=== PATIENT | female | born 1990 | race Caucasian/White ===

== ENCOUNTER → 2020-05-09 11:51 | Outpatient (BNVA) | payer MEDICAID, SELFPAY | PROVIDERS: PCP Family Medicine; Visit Provider Nurse Practitioner Family | DX: M25.511 Pain in right shoulder (principal) | CPT/HCPCS: 73030 ==

== ENCOUNTER → 2021-10-08 15:28 | Outpatient (BNVA) | payer OTHER, SELFPAY | PROVIDERS: Visit Provider Registered Nurse Neonatal Intensive Care | DX: M79.672 Pain in left foot (principal) | CPT/HCPCS: 73630 ==

== ENCOUNTER 2021-12-11 05:49 | Day surgery (SDC) | payer OTHER, SELFPAY ==
[2021-12-10 13:18] VITALS: BMI 44.2
[2021-12-11] VITALS (8 sets, daily range): BP systolic 105–147; BP diastolic 54–92; PULSE 63–81; RESP 16–18; TEMP 36.2–36.6; O2SAT 96–100
--- NOTE | 2021-12-11 | SCC_ITS ---
Procedure done: Left tailor's bunionectomy. CPT code 33868 6 seconds of fluoroscopic guidance, for a cumulative dose of 0.11mGy, was provided to Dr. Buckley by the radiology department. C-arm images of the LEFT foot were saved for the patient's permanent record. [facility]
[2021-12-11 06:15] LABS: OR HCG Qualitative Urine Negative (Negative)
[2021-12-11] MEDS: sodium chloride 0.9% 1,000 ML 30 ML IV (06:20)
[2021-12-11] MEDS: CELEcoxib 200 mg Capsule 400 MG PO (06:31)
[2021-12-11] MEDS: gabapentin 300 mg Capsule PO (06:31)
--- NOTE | 2021-12-11 06:36 | ANES.PREANE2 ---
Pre-Anesthetic Assessment Height/Weight: Height 1.68 m Weight 124.284 kg Temp Pulse Resp BP Pulse Ox 97.4 F L 81 16 147/92 98 12/11/21 06:07 12/11/21 06:07 12/11/21 06:07 12/11/21 06:07 12/11/21 06:07 Preop Diagnosis: Left zion's bunionette Operation Date: 12/11/21 07:00 Proposed Procedures p Left Bunionectomy Tailors [id number]/m21.622(Left) - Lizandro Buckley DPM Familial anesthetic complications: None Was Beta Bernie taken within 24 hours: N/A Was Clonidine taken within 24 hours: N/A Last intake: Intake Last Liquid Date 12/10/21 Last Liquid Time 19:00 Last Solid Date 12/10/21 Last Solid Time 19:00 Social No alcohol and No tobacco Exam alert, oriented x 3, clear to auscultation bilaterally and regular rate & rhythm Airway Mallampati: Class II Dentition: other (missing) History/ROS No significant complaints Metabolic Morbid Obesity Anesthetic Plan ASA status: 2 Anesthesia: MAC Risk of > 500 ml blood loss (7ml/kg in children): No Medications/Allergies Home Medications Medication Instructions Recorded Confirmed Last Taken Type No Known Home Medications 12/10/21 12/10/21 Unknown History Allergies Allergy/AdvReac Type Severity Reaction Status Date / Time No Known Allergies Allergy Verified 12/10/21 13:18 Current Medications Generic Name Dose Route Start Last Admin Trade Name Freq PRN Reason Stop Dose Admin Sodium Chloride 1,000 mls @ 30 mls/hr 12/11/21 06:00 12/11/21 06:20 Sodium Chloride 0.9% IV 12/12/21 05:59 30 mls/hr .Q24H EDUARD Administration PFSH Anesthesia Medical History Anemia Morbid obesity with BMI of 40.0-44.9, adult Right shoulder strain Surgical History Hx of cholecystectomy Social History Smoking and tobacco status: never smoked Alcohol intake: never Current occupational status: employed Female Reproductive History Date of last menstrual period: 12/04/19 Data Anesthesia Cardiac Studies: No Data to Display
--- NOTE | 2021-12-11 06:37 | W.PM.OPSUD ---
Surgery/Procedure H&P Update DATE OF PROCEDURE: December 11, 2021 DATE H&P PERFORMED: 12/11/21 CHANGES TO PREVIOUS DOCUMENTATION: none PREOP DIAGNOSIS: Left tailor's bunionette PLANNED PROCEDURE: Operation Date: 12/11/21 07:00 Proposed Procedures p Left Bunionectomy Ayesha 13036/m21.622(Left) - Lizandro Buckley DPM
--- NOTE | 2021-12-11 06:38 | PM.OPSURHP ---
Providers/Chief Complaint Chief Complaint: bunion left foot History of Present Illness Roxi Olivares is a 31 year old female presents with persistent pain at the right lateral foot at [facility]'s bunionectomy site.? States that her deformity has been progressive and pain is no longer alleviated with wide accommodative shoes or anti-inflammatories.? She has a sharp stabbing pain on a daily basis with standing and walking with and without shoes, shoes make it worse.? Would like to proceed with surgical intervention as conservative measures have failed alleviate her pain Patient denies any subjective nausea, vomiting, fever, chills, shortness of breath or chest pain.? Review of Systems General: Reports: 10 or more systems reviewed and unremarkable except in HPI and below Const: Denies: fever(s) or chills Eyes: Denies: change in vision Card: Denies: chest pain or palpitations Resp: Denies: dyspnea or productive cough GI: Denies: abdominal pain, nausea or vomiting : Denies: flank pain Musc: Reports: extremity pain, joint pain, joint stiffness, limited range of motion and deformity Skin/Breast: Reports: skin tenderness; Denies: rash Neuro: Reports: difficulty walking; Denies: numbness in extremities, sensory changes or frequent falls Psych: Denies: suicidal ideation Arden/Lymph: Denies: easy bruising Medications/Allergies Home Medications Medication Instructions Recorded Confirmed Last Taken Type No Known Home Medications 12/10/21 12/10/21 Unknown History Allergies Allergy/AdvReac Type Severity Reaction Status Date / Time No Known Allergies Allergy Verified 12/10/21 13:18 PFSH PFSH: Medical History Anemia Morbid obesity with BMI of 40.0-44.9, adult Right shoulder strain Surgical History Hx of cholecystectomy Social History Smoking and tobacco status: never smoked Alcohol intake: never Current occupational status: employed Female Reproductive History: Date of last menstrual period: 12/04/19 Vital Signs Vitals Signs: Last Vital Signs Temp 97.4 F L 12/11/21 06:07 Pulse 81 12/11/21 06:07 Resp 16 12/11/21 06:07 BP 147/92 12/11/21 06:07 Pulse Ox 98 12/11/21 06:07 Weight: Weight last 48 hrs Weight 274 lb Weight 274 lb Physical Exam Narrative: EXAM NARRATIVE: Patient is alert and oriented ?3 and in no acute distress.? The following is a focused bilateral lower extremity exam. VASCULAR: Dorsalis pedis and posterior tibial arteries palpable +2.? Capillary refill time less than 3 seconds to the distal hallux bilaterally. Calf is supple and nontender proximally and distally.? No pedal edema appreciated.? Pedal hair growth present. NEUROLOGICAL: Epicritic and protopathic sensations grossly intact to the lower extremities.? +2 Achilles tendon reflex noted bilaterally.? Negative Tinel sign upon percussion of lower extremity nerves. DERMATOLOGICAL: Lower extremity skin is well-hydrated, normal texture and turgor.? There are no open sores or lesions noted to the lower extremities.? No erythema or ecchymosis present to the bilateral legs and feet. MUSCULOSKELETAL: Exquisite tenderness to palpation at the left lateral fifth metatarsophalangeal joint at tailor's bunion deformity.? Tailor's bunion left foot that is tender to palpation.? Muscle strength 5 out of 5 in all 3 planes to the bilateral foot and ankle. CARDIOVASCULAR: S1, S2, normal rate, normal rhythm.? Dorsalis pedis and posterior tibial arteries palpable. LUNGS: Clear to auscltation, no use of acessory muscles, no crackles or wheezes. A&P Assessment and plan (1) Left foot pain: Status: Acute (2) Tailor's bunionette, left: Status: Acute Plan X-ray left foot 3 view shows curvature to the left fifth metatarsal distally.? Fifth metatarsal phalangeal joint is deviated and there is a osseous prominence clinically that is tender to palpation at the tailor's bunion site.? Patient no longer experiencing relief with wider and accommodative shoes and anti-inflammatories would like to discuss surgical intervention.? Recommended tailor's bunionectomy with risks including but not limited to pain, bleeding, numbness, infection, surgical site dehiscence, chronic swelling and numbness, failure to correct deformity, overcorrection of deformity, delayed union, malunion, nonunion, hardware irritation, failed hardware and need for further surgical intervention.? Patient is agreeable wishes to proceed with the scheduled on December 11, 2021 will be done outpatient. Left tailor's bunionectomy, 12/11/2021, outpatient, MAC anesthesia, gurney, supine, duration of procedure 30 minutes. Coding Level of Care Code Acute Lgsw for Amandag Fwd Diagnoses Left foot pain M79.672 Tailor's bunionette, left M21.622
--- NOTE | 2021-12-11 06:40 | PM.OP ---
Operative Report Date of procedure: December 11, 2021 Pre-op diagnosis: Left tailor's bunion. Post-op diagnosis: Same Post-op findings: None Procedure done: Left tailor's bunionectomy. CPT code 84313 Implants: [employer] ProStep, 4-0 Monocryl, 4-0 nylon. Specimens removed/disposition: None Pathology: None Surgeon: Lizandro Buckley D.P.M. Quality Engineer Medical Device: Alvin Estimated blood loss: Less than 5 24 IV fluids: 0 Urine output: None Complications: None Findings: Bunion left foot Brief History: shaneka Olivares is a 31 year old female presents with persistent pain at the right lateral foot at tailor's bunionectomy site.? States that her deformity has been progressive and pain is no longer alleviated with wide accommodative shoes or anti-inflammatories.? She has a sharp stabbing pain on a daily basis with standing and walking with and without shoes, shoes make it worse.? Would like to proceed with surgical intervention as conservative measures have failed alleviate her pain. Risks include pain, bleeding, numbness, infection, paresthesias, damage to adjacent soft tissue structures including nerve and tendon, hardware failure, hardware rotation, delayed union, malunion, nonunion, overcorrection of deformity, under correction deformity, need for further surgical intervention. N.p.o. since midnight. Informed consent signed by patient myself. I initialed her left lower extremity. Patient wishes to proceed. No guarantees written, expressed or implied. Procedure: Under mild sedation the patient was brought to the operating room and remained on the gurney in supine position. A timeout was performed. Anesthesia was then administered by the anesthesia service. Local anesthesia injected by myself total of 10 cc of 0.25% Marcaine plain in the left reverse Springer block. Well-padded pneumatic tourniquet applied to the left ankle. The left lower extremity was scrubbed, prepped and draped utilizing normal aseptic technique. Left foot was exanguinated with an Esmarch bandage and a tourniquet inflated to 250 mmHg. Attention was directed to the dorsal lateral aspect of the left fifth metatarsophalangeal joint where with a #15 blade a curvilinear incision was made directly lateral to the fifth metatarsal phalangeal joint through skin with dissection carried down through subcutaneous tissue utilizing a combination of blunt and sharp technique. Care was taken to retract and preserve neurovascular and tendinous structures. All bleeders were ligated and cauterized as necessary. The head of the fifth metatarsal was then directly visualized, metaphyseal diaphyseal juncture was transected utilizing a sagittal saw with a transverse osteotomy and the head of the fifth metatarsal shifted medially into a more anatomically corrected position. Next utilizing standard technique and manufacture surgical recommendations for this implant a small broach was inserted into the intramedullary canal of the fifth metatarsal and advanced, sizing required small implant for appropriate fit which was inserted and fixated utilizing a locking screw into the head of the fifth metatarsal. Positioning and anatomic reduction of the fourth intermetatarsal angle left foot appreciated on all 3 views of fluoroscopy intraoperatively. Smooth range of motion of the fifth metatarsal phalangeal joint appreciated. Hardware did not violate the joint. Incision was flushed with saline solution and closed with periosteum and subcutaneous tissue closed with 4-0 Vicryl and skin closed with 4-0 nylon. Incision was dressed with Adaptic, sterile 4 x 4, Kerlix and Ke wrap and a cam boot was applied to the left lower extremity. Tourniquet was deflated and a prompt hyperemic response is noted to the distal digits of the left foot. Patient tolerated procedure and anesthesia well and was transferred to the PACU with vital signs stable and vascular status intact. Following a period of postoperative monitoring she will be discharged home may be weightbearing as tolerated. Will follow-up in podiatry clinic next week. She is to keep her postoperative dressings clean, dry and intact until follow-up visit. Elevate left foot while resting. Activities below threshold of pain.
--- NOTE | 2021-12-11 07:45 | XR_ITS ---
WS: [id number] Left foot, 3 views, 12/11/2021 Clinical Data: Postop bunionectomy Comparison: Left foot, 10/08/2021 Findings: The patient has had an osteotomy of the distal left fifth metatarsal with a screw in the metatarsal h ead. There is a lateral plate adjacent to the distal left fifth metatarsal. The remainder of the foot is unremarkable. XR/XR foot LT min 3V* [id number] Impression: Osteotomy of left fifth metatarsal.
--- NOTE | 2021-12-11 11:00 | ANE.PACU2 ---
Inpatient post-anesthesia follow up: Airway intact: Yes Vital signs: Temperature 98 F Pulse Rate 64 Respiratory Rate 17 Blood Pressure 111/89 Pulse Oximetry 100 Oxygen Delivery Me thod Room Air Oxygen Flow Rate 6 Fraction of Inspir ed Oxygen Hydration adequate: Yes Nausea and vomiting: No Pain level: 1 Mental status: Baseline
== END 2021-12-11 08:58 | disposition home or self-care (01) ==
PROVIDERS: Visit Provider Podiatrist Foot & Ankle Surgery
PROC: 0QBP0ZZ Excision of Left Metatarsal, Open Approach (ICD-10-PCS; CPT 28110; principal; 2021-12-11 07:00)
DX: M21.622 Bunionette of left foot (principal); E66.01 Morbid (severe) obesity due to excess calories; Z68.41 Body mass index [BMI] 40.0-44.9, adult
CPT/HCPCS: 28308; 73630; 76000; 81025; 84703; C1713; C9290; J0690; J2250; J2704; J3010; J3490; J7030

== ENCOUNTER → 2021-12-24 14:06 | Outpatient (BNVA) | payer OTHER, SELFPAY | PROVIDERS: Visit Provider Podiatrist Foot & Ankle Surgery | DX: Z98.890 Other specified postprocedural states (principal) | CPT/HCPCS: 73630 ==

== ENCOUNTER 2022-01-08 00:24 | Emergency (ER) | payer OTHER, SELFPAY ==
[2022-01-08 00:36] VITALS: BP 149/98; PULSE 91; RESP 18; TEMP 36.5; O2SAT 98; BMI 37.4
--- NOTE | 2022-01-08 00:41 | W.ED.ALLEREA ---
HPI - Allergic Reaction General: Chief complaint: Allergic Reaction Stated complaint: tick bite on R ear, face swelling Time Seen by Provider: 01/08/22 00:41 History of Present Illness: HPI narrative: Patient comes in today with complaints of tick bite to the right ear. Patient noticed the tick on her ear earlier today. Patient was concerned due to some swelling of the face and ear at this evening. Patient denies any difficulties with breathing. Patient appears in no pain. Patient appears nontoxic. Review of Systems General: Reports: 10 or more systems reviewed and unremarkable except in HPI and below ENMT: Reports: ear discharge Card: Denies: chest pain Resp: Denies: dyspnea Skin/Breast: Reports: erythema PFSH ED PFSH: Medical History Anemia Morbid obesity with BMI of 40.0-44.9, adult Right shoulder strain Surgical History Hx of cholecystectomy Social History Smoking and tobacco status: never smoked Alcohol intake: never Current occupational status: employed Female Reproductive History: Date of last menstrual period: 12/04/19 Physical Exam Const: COMMON NORMALS: alert HENMT: COMMON NORMALS: TM's normal bilaterally FACE & SINUS: erythema (Preauricular mild) on the right EXTERNAL EAR: Yes external ear abnormal (Mild swelling and redness right side) TYMPANIC MEMBRANE: TM's normal bilaterally THROAT: posterior oropharynx normal Neck/C-Spine: COMMON NORMALS: full ROM Resp: COMMON NORMALS: normal respiratory effort Cardio: COMMON NORMALS: regular rate RATE: regular rate Extremity: COMMON NORMALS: normal to inspection Neuro: SENSORIUM/ORIENTATION: Yes alert Skin: GENERAL SKIN EXAM: erythema (Right preauricular area with mild swelling) Course Vital Signs: Vital signs: Vital Signs Temperature 97.7 F 01/08/22 00:36 Pulse Rate 91 01/08/22 00:36 Respiratory Rate 18 01/08/22 00:36 Blood Pressure 149/98 01/08/22 00:36 Pulse Oximetry 98 01/08/22 00:36 MDM - Allergic Reaction Medical Decision Making Patient comes in today for concerns of swelling and redness to her right side of her face and right auricular area. Patient reports picking a tick off her right ear earlier in the day. Patient was at work tonight and it was noticed that she had some redness and swelling. On exam respirations are even lungs are clear to auscultation. We do note some mild swelling to the right side of the face. There is also some swelling and redness to the right auricle of the ear. Tympanic membranes were intact. Differential diagnosis includes insect bite infection, local reaction to insect bite, contact dermatitis. We will go ahead and cover patient with some dexamethasone and a dose of doxycycline in the ER for the swelling and for possible infection. Patient will be continued on prednisone to help control swelling for the next 5 days. Patient will also be kept on doxycycline for the next 10 days for post tick bite exposure. Patient reports understanding of care plan and need for follow-up or return to the ER. Patient was also instructed on the use of antihistamines to help with itching and rash. Discharge Plan Discharge Patient Disposition: Home Clinical Impression: Tick bite Qualifiers: Encounter type: initial encounter Site of tick bite: head Site of tick bite of head: ear Laterality: right Qualified Code(s): S00.461A - Insect bite (nonvenomous) of right ear, initial encounter Condition: Stable Prescriptions: New prednisone 20 mg tablet 20 mg PO BID 5 Days Qty: 10 0RF doxycycline monohydrate 100 mg capsule 100 mg PO BID 10 Days Qty: 20 0RF No Action oxycodone-acetaminophen [Percocet] 5-325 mg tablet 1 tab PO Q6H PRN (Reason: pain) 7 Days Qty: 28 0RF Discharge Orders: Discharge ED (Routine); Ordered 01/08/22 Ordered By: Carlos Huitron Discharge Diet: Usual diet Discharge Activity: Increase activity as tolerated Patient Instructions: Tick Bite (ED) Activity Restrictions/Additional Instructions: Drink plenty of fluids. Take antibiotic and prednisone as directed. Take the antibiotic or steroid with food on your stomach to prevent nausea. Use acetaminophen or ibuprofen for pain and fever. Use Benadryl or [id number] Claritin or Zyrtec for itching. You can use Claritin or Zyrtec 1 to 2 tablets twice a day to help with itching and rash. Claritin or Zyrtec will not cause as much drowsiness and is much more well-tolerated than Benadryl. Follow-up with primary care. Return to ER as needed. Stand Alone Forms: Work/School Release Coding Level of Care Code ED Commercial Specialist for Sharad Barnes
[2022-01-08] MEDS: doxycycline 100 mg Tablet PO (00:55)
[2022-01-08] MEDS: dexamethasone 10 mg/mL INJ IM (00:56)
[2022-01-08 01:00] VITALS: BP 135/92; PULSE 84; RESP 16; O2SAT 98
[2022-01-08 01:06] VITALS: BP 135/92; PULSE 84; RESP 16; O2SAT 98
== END 2022-01-08 01:10 | disposition home or self-care (01) ==
PROVIDERS: Emergency Provider Nurse Practitioner Family
DX: S00.461A Insect bite (nonvenomous) of right ear, initial encounter (principal); W57.XXXA Bitten or stung by nonvenomous insect and other nonvenomous arthropods, initial encounter
CPT/HCPCS: 96372; 99283; J1100

== ENCOUNTER → 2022-01-14 07:56 | Outpatient (BNVA) | payer OTHER, SELFPAY | PROVIDERS: Visit Provider Podiatrist Foot & Ankle Surgery | DX: Z98.890 Other specified postprocedural states (principal) | CPT/HCPCS: 73630 ==

== ENCOUNTER → 2022-01-21 13:15 | Outpatient (BNVA) | payer OTHER, SELFPAY | PROVIDERS: Visit Provider Podiatrist Foot & Ankle Surgery | DX: Z98.890 Other specified postprocedural states (principal); M21.622 Bunionette of left foot | CPT/HCPCS: 73630 ==

== ENCOUNTER 2022-02-12 04:21 | Emergency (ER) | payer OTHER, SELFPAY ==
--- NOTE | 2022-02-12 04:37 | ED_ITS ---
Documented by User: Dandre Andino MD 02/23/22 22:48 HPI - General Adult General: Chief complaint: Medical Clearance Stated complaint: side injury Time Seen by Provider: 02/12/22 04:35 History of Present Illness: Ms. Olivares is a 32-year-old lady without signi ficant past medical history presents to the ER department due to concern over body fluid exposure. 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 Denies other recent changes in health. Onset (ago): minute(s) Location: abdomen Review of Systems General: Reports: 10 or more systems reviewed and unremarkable except in HPI and below PFSH ED PFSH: Medical History Anemia Morbid obesity with BMI of 40.0-44.9, adult Right shoulder strain Surgical History Hx of cholecystectomy Social History Smoking and tobacco status: never smoked Alcohol intake: never Current occupational status: employed Female Reproductive History: Date of last menstrual period: 12/04/19 Physical Exam Const: COMMON NORMALS: alert GENERAL APPEARANCE: cooperative and well devpercy young HENMT: COMMON NORMALS: normocephalic and atraumatic HEAD & SCALP: normocephalic and atraumatic THROAT: posterior oropharynx normal Eye: COMMON NORMALS: conjunctivae normal CONJUNCTIVA: Yes conjunctivae nor mal SCLERA: sclerae normal Neck/C-Spine: COMMON NORMALS: supple GENERAL: Yes trachea midline Resp: COMMON NORMALS: normal respiratory effort EFFORT & INSPECTION: Yes able to speak in complete sentences Cardio: COMMON NORMALS: regular rate and regular rhythm RATE: regular rate RHYTHM: regular rhythm GI: COMMON NORMALS: Soft to palpation PALPATION: Yes Soft to palpation and No Tenderness to palpation present (GI) Extremity: GENERAL: Yes normal exam except as noted and No edema Neuro: COMMON NORMALS: moves all extremities SENSORIUM/ORIENTATION: Yes alert and No Orientation impaired Psych: COMMON NORMALS: mental status grossly normal and Normal thought process present THOUGHT PROCESS: Normal thought process present Skin: NARRATIVE SKIN EXAM: Abrasion and contusion with fingernail swanson to right flank Course Vital Signs: Vital signs: Vital Signs Temperature 98 F 02/12/22 04:47 Pulse Rate 91 02/12/22 04:47 Respiratory Rate 15 02/12/22 04:47 Pulse Oximetry 96 02/12/22 04:47 Oxygen Delivery Me thod 02/12/22 04:47 MDM - General Adult Medical Decision Making 32-year-old lady presenting for possible body fluid exposure while at work. She was scratched on her right side with dirty fingers. No injuries requiring repair. Given that source of Exposure was known I discussed the case with warehouse specialist who will proceed with protocol regarding obtaining samples from patient. Patient comfortable waiting for those results and encouraged to follow-up. Chart signed out to me at change of shift however Dr. Nuñez completed care and I did not participate in patient's care at this visit. Medical Records I reviewed the patient's medical records. Lab Data I reviewed the patient's lab results. Laboratory Results Hep Bs Antigen Non-reactive (Nonreactive) 02/12/22 06:05 Hep Bs Antibody < 3.5 (11.5-1000) L 02/12/22 06:05 Hepatitis C Antibody Non-reactive (Nonreactive) 02/12/22 06:05 HIV 1&2 Ab & HIV 1 Ag Non-reactive (Non-Reactiv) 02/12/22 06:05 HIV 1&2 Antibody Non-reactive (Non-Reactiv) 02/12/22 06:05 Discharge Plan Discharge Patient Disposition: Home Clinical Impression: Employee exposure to body fluids, Abrasion Condition: Stable Prescriptions: No Action oxycodone-acetaminophen [Percocet] 5-325 mg tablet 1 tab PO Q6H PRN (Reason: pain) 7 Days Qty: 28 0RF hydrocodone-acetaminophen 5-325 mg tablet 1 tab PO Q6H PRN (Reason: pain) 7 Days Qty: 28 0RF triamcinolone acetonide 0.1 % cream 1 applic topical TID Qty: 30 2RF Discharge Orders: Discharge ED (Routine); Ordered 02/12/22 Ordered By: Dandre Andino Discharge Diet: Usual diet Discharge Activity: Resume usual activity Patient Instructions: Abrasion (ED) Activity Restrictions/Additional Instructions: Thank you for visiting the emergency department. You were seen and evaluated for concern over body fluid exposure. Please follow-up with employee health regarding testing of patient. I believe the likelihood of transmission of infectious disease is very low however if patient refuses to be tested you do have the option of having postexposure prophylaxis to prevent or reduce likelihood of prevention of HIV. This needs to be initiated within 72 hours of exposure so please follow-up within the next day or so regarding patient testing. Please perform local wound care keeping the area clean and dry. Watch for signs of infection. Return to the emergency department for anything that you are concerned about and feel needs emergency department evaluation. Coding Level of Care Code ED Account Planner for Chg Fwd Documented by User: Bobo Godoy DO 02/12/22 16:57 HPI - General Adult General: Chief complaint: Medical Clearance Stated complaint: side injury Time Seen by Provider: 02/12/22 04:35 History of Present Illness: See Dr. Nuñez's notes. I did not see this patient Dr. Andino completed care and discharge. [facility] ED PFSH: Medical History Anemia Morbid obesity with BMI of 40.0-44.9, adult Right shoulder strain Surgical History Hx of cholecystectomy Social History Smoking and tobacco status: never smoked Alcohol intake: never Current occupational status: employed Course Vital Signs: Vital signs: Vital Signs Temperature 98 F 02/12/22 04:47 Pulse Rate 91 02/12/22 04:47 Respiratory Rate 15 02/12/22 04:47 Pulse Oximetry 96 02/12/22 04:47 Oxygen Delivery Me thod 02/12/22 04:47 MDM - General Adult Medical Decision Making Chart signed out to me at change of shift however Dr. Nuñez completed care and I did not participate in patient's care at this visit. Lab Data Laboratory Results Hep Bs Antigen Non-reactive (Nonreactive) 02/12/22 06:05 Hep Bs Antibody < 3.5 (11.5-1000) L 02/12/22 06:05 Hepatitis C Antibody Non-reactive (Nonreactive) 02/12/22 06:05 HIV 1&2 Ab & HIV 1 Ag Non-reactive (Non-Reactiv) 02/12/22 06:05 HIV 1&2 Antibody Non-reactive (Non-Reactiv) 02/12/22 06:05 Discharge Plan Discharge Patient Disposition: Home Clinical Impression: Employee exposure to body fluids, Abrasion Condition: Stable Prescriptions: No Action oxycodone-acetaminophen [Percocet] 5-325 mg tablet 1 tab PO Q6H PRN (Reason: pain) 7 Days Qty: 28 0RF hydrocodone-acetaminophen 5-325 mg tablet 1 tab PO Q6H PRN (Reason: pain) 7 Days Qty: 28 0RF triamcinolone acetonide 0.1 % cream 1 applic topical TID Qty: 30 2RF Discharge Orders: Discharge ED (Routine); Ordered 02/12/22 Ordered By: Dandre Andino Discharge Diet: Usual diet Discharge Activity: Resume usual activity Patient Instructions: Abrasion (ED) Activity Restrictions/Additional Instructions: Thank you for visiting the emergency department. You were seen and evaluated for concern over body fluid exposure. Please follow-up with employee health regarding testing of patient. I believe the likelihood of transmission of infectious disease is very low however if patient refuses to be tested you do have the option of having postexposure prophylaxis to prevent or reduce likelihood of prevention of HIV. This needs to be initiated within 72 hours of exposure so please follow-up within the next day or so regarding patient testing. Please perform local wound care keeping the area clean and dry. Watch for signs of infection. Return to the emergency department for anything that you are concerned about and feel needs emergency department evaluation. Coding Level of Care Code ED Account Planner for Sharad Barnes
[2022-02-12 04:47] VITALS: PULSE 91; RESP 15; TEMP 36.6; O2SAT 96; BMI 43.4
[2022-02-12 07:17] LABS: HIV 1 & 2 Antibody Non-Reactive (Non-Reactiv); HIV 1 & 2 Antigen Non-Reactive (Non-Reactiv)
[2022-02-12 10:13] LABS: Hepatitis B Surface Antigen Non-Reactive (Nonreactive); Hepatitis C Virus Antibody Non-Reactive (Nonreactive)
[2022-02-12 10:27] LABS: Hepatitis B Surface AB < 3.5 (11.5-1000)
== END 2022-02-12 06:47 | disposition home or self-care (01) ==
PROVIDERS: Emergency Provider Emergency Medicine
DX: Z77.21 Contact with and (suspected) exposure to potentially hazardous body fluids (principal); Y99.0 Civilian activity done for income or pay; T14.8XXA Other injury of unspecified body region, initial encounter; X58.XXXA Exposure to other specified factors, initial encounter
CPT/HCPCS: 86706; 86803; 87340; 87806; 99283

== ENCOUNTER → 2022-03-04 14:02 | Outpatient (BNVA) | payer OTHER, SELFPAY | PROVIDERS: Visit Provider Podiatrist Foot & Ankle Surgery | DX: M79.672 Pain in left foot (principal) | CPT/HCPCS: 73630 ==

== ENCOUNTER 2022-04-02 10:52 | Emergency (ER) | payer OTHER, SELFPAY ==
[2022-04-02 10:55] VITALS: BP 124/85; PULSE 100; RESP 16; TEMP 36.7; O2SAT 96; BMI 39.0
--- NOTE | 2022-04-02 11:05 | ED_ITS ---
HPI - Allergic Reaction General: Chief complaint: Allergic Reaction Stated complaint: body rash, possible allergic reaction Time Seen by Provider: 04/02/22 11:04 History of Present Illness: HPI narrative: Ms. Olivares is a 32-year-old lady without significant past medical history presents to the emergency department due to concern over allergic reaction. She reports being at work yesterday and noticing a little bit of nonpainful swelling without known specific provoking factor of the left eye. This became more swollen before bed and she noticed a mild rash on her chest. She woke up this morning with more swelling, facial rash, generalized itchy rash around her body. Denies new environmental exposure. No GI symptoms or shortness of breath/throat swelling. No history of similar. Intensity symptoms is moderate. She tried home medications including Benadryl without significant improvement. No other specific changes in health, exacerbating, or alleviating factors identified. Onset (ago): hour(s) Known history of allergy to: None Associated symptoms: Reports facial swelling, itching and rash Severity: moderate Review of Systems General: Reports: 10 or more systems reviewed and unremarkable except in HPI and below All/Imm: Reports: facial swelling [facility] ED PFSH: Medical History Anemia Morbid obesity with BMI of 40.0-44.9, adult Right shoulder strain Surgical History Hx of cholecystectomy Social History Smoking and tobacco status: never smoked Alcohol intake: never Current occupational status: employed Female Reproductive History: Date of last menstrual period: 12/04/19 Physical Exam Const: COMMON NORMALS: alert GENERAL APPEARANCE: cooperative and well developed HENMT: COMMON NORMALS: normocephalic and atraumatic HEAD & SCALP: normocephalic and atraumatic THROAT: posterior oropharynx normal OTHER: Left periorbital edema without ecchymosis, mild to moderate, soft Eye: COMMON NORMALS: conjunctivae normal CONJUNCTIVA: Yes conjunctivae normal SCLERA: sclerae normal OTHER: No evidence of ocular involvement with allergic reaction, normal EOMs without pain Neck/C-Spine: COMMON NORMALS: supple GENERAL: Yes trachea midline Resp: COMMON NORMALS: normal respiratory effort and clear to auscultation bilaterally EFFORT & INSPECTION: Yes able to speak in complete sentences AUSCULTATION: clear to auscultation bilaterally Cardio: COMMON NORMALS: regular rate and regular rhythm RATE: regular rate RHYTHM: regular rhythm GI: COMMON NORMALS: Soft to palpation PALPATION: Yes Soft to palpation and No Tenderness to palpation present (GI) Extremity: GENERAL: Yes normal exam except as noted and No edema Neuro: COMMON NORMALS: moves all extremities SENSORIUM/ORIENTATION: Yes alert and No Orientation impaired Psych: COMMON NORMALS: mental status grossly normal and Normal thought process present THOUGHT PROCESS: Normal thought process present Skin: NARRATIVE SKIN EXAM: Scattered areas of erythema and wheals, more confluent lesion in the right antecubital area. Course ED course: - Patient was seen and evaluated by me at bedside - Patient placed on cardiac monitors, IV access obtained - Initial evaluation notable for exam above. No evidence of orbital cellulitis or abnormal EOMs. -Allergic reaction treatment and IV fluids ordered - Upon serial reexamination after treatment the patient was improved - Based on patient history, evaluation, and testing as interpreted the most likely cause of the patient's condition is allergic reaction to unknown agent - The results of ED evaluation were discussed with the patient including prescriptions and/or symptomatic cares (if applicable) including appropriate and responsible use, followup plan, and return precautions. The patient verbalized understanding and felt safe for discharge. - Patient discharged in satisfactory condition. Note: Click bubbles or prepopulated vergara in note writing are used for assistance with data collection and billing and are inherently more limited than narrative and other text portions of this note. Please use narrative for additional clinical history and defer to narrative/free test for any case of contradictory information. If information appears in only free text or click bubble it should be considered present or absent as reported. Please contact note magnetic tape typewriter operator for clarifications of clinical information or contradictory information. MDM is a brief summary, contradictory or erroneous seeming information should be clarified and full note should be reviewed. Vital Signs: Vital signs: Vital Signs Temperature 98.0 F 04/02/22 10:55 Pulse Rate 100 04/02/22 10:55 Respiratory Rate 16 04/02/22 10:55 Blood Pressure 124/85 04/02/22 10:55 Pulse Oximetry 96 04/02/22 10:55 Oxygen Delivery Ia thod 04/02/22 10:55 MDM - Allergic Reaction Medical Decision Making 32-year-old lady presenting with likely allergic reaction to unknown agent. No evidence of anaphylaxis. Improved with treatment. Satisfactory for outpatient management with continued treatment. Medical Records I reviewed the patient's medical records. Lab Data I reviewed the patient's lab results. Discharge Plan Discharge Patient Disposition: Home Clinical Impression: Allergic reaction, Urticaria Condition: Stable Prescriptions: No Action Benadryl 1 % Cream 1 applic TOPICAL Q1H PRN (Reason: Allergic Reaction) Benadryl 25 mg Capsule 25 mg PO Q6H PRN (Reason: Allergic Reaction) Discharge Orders: Discharge ED (Routine); Ordered 04/02/22 Ordered By: Dandre Andino Discharge Diet: Usual diet Discharge Activity: Increase activity as tolerated Patient Instructions: Urticaria (ED), General Allergic Reaction (ED) Activity Restrictions/Additional Instructions: Thank you for visiting the emergency department. You were seen and evaluated for itchy rash and facial swelling. The exact cause of your symptoms is unclear though does appear to be related to allergic reaction of uncertain cause. I will prescribe steroids and Pepcid for a 5-day course. Additionally you may use Benadryl as directed on the packaging. Please follow-up with your primary care provider. Return to the emergency department for worsening symptoms or anything else that you are concerned about and feel needs emergency department evaluation. Stand Alone Forms: Work/School Release Coding Level of Care Code ED Application Security Developer for Sharad Fwd Exam Comprehensive
[2022-04-02] MEDS: famotidine 20 mg/2 mL INJ 40 MG IVP (12:06)
[2022-04-02] MEDS: lactated ringers 1,000 ML 999 ML IV (12:06)
[2022-04-02] MEDS: diphenhydrAMINE 50 mg/mL SDV 1mL 25 MG IVP (12:06)
== END 2022-04-02 13:11 | disposition home or self-care (01) ==
PROVIDERS: Emergency Provider Emergency Medicine
DX: T78.40XA Allergy, unspecified, initial encounter (principal); L50.9 Urticaria, unspecified
CPT/HCPCS: 96361; 96374; 96375; 99284; J1200; J2930; J3490

== ENCOUNTER → 2022-05-14 14:57 | Outpatient (BNVA) | payer OTHER, SELFPAY | PROVIDERS: Visit Provider Podiatrist Foot & Ankle Surgery | DX: M21.621 Bunionette of right foot (principal); L60.0 Ingrowing nail | CPT/HCPCS: 73630 ==

== ENCOUNTER → 2022-05-19 15:59 | Outpatient (BNVA) | payer OTHER, SELFPAY | PROVIDERS: Visit Provider Podiatrist Foot & Ankle Surgery | DX: Z98.890 Other specified postprocedural states (principal); S90.32XA Contusion of left foot, initial encounter; W23.0XXA Caught, crushed, jammed, or pinched between moving objects, initial encounter | CPT/HCPCS: 73630 ==

== ENCOUNTER → 2022-06-09 14:13 | Outpatient (BNVA) | payer OTHER, SELFPAY | PROVIDERS: Visit Provider Registered Nurse Neonatal Intensive Care | DX: J02.9 Acute pharyngitis, unspecified (principal) | CPT/HCPCS: 87071; 87880 ==

== ENCOUNTER 2022-06-11 11:08 | Outpatient (CLI) | payer OTHER, SELFPAY ==
--- NOTE | 2022-06-11 11:19 | XR_ITS ---
WS: [id number] Exam: XR chest 2V* [id number] Date/Time of Exam: 06/11/2022 11:19 AM Reason For Exam: COUGH Comparison 05/03/2013. Findings: The lungs are clear and fully expanded. Costophrenic angles are sharp. No infiltrates. Bronchovascula r relief appears normal. Cardiac silhouette is unremarkable. Bony elements are intact. XR/XR chest 2V* [id number] IMPRESSION: Unremarkable chest radiograph.
== END 2022-06-11 11:09 | disposition home or self-care (01) ==
PROVIDERS: Visit Provider Family Medicine
DX: R05.9 Cough, unspecified (principal)
CPT/HCPCS: 71046

== ENCOUNTER 2022-06-23 08:59 | Emergency (ER) | payer OTHER, SELFPAY ==
[2022-06-23 09:03] VITALS: BP 135/86; PULSE 82; RESP 13; TEMP 36.5; O2SAT 96; BMI 37.8
--- NOTE | 2022-06-23 09:12 | W.ED.COVID ---
HPI - COVID General: Chief Complaint: COVID symptoms Stated Complaint: exposed to bodily fluids Time Seen by Provider: 06/23/22 09:05 History of Present Illness: Patient is a 32-year-old female comes to the ED after COVID exposure. Patient's been around a person who was recently diagnosed with COVID. Over the last day she endorses some nausea and had an episode of emesis today. She denies any other symptoms. COVID 19 common symptoms: positive nausea and vomiting; negative fever(s), chills, non-productive cough, productive cough, dyspnea, fatigue, headache(s), throat pain, nasal congestion or diarrhea COVID 19 other sytmptoms: negative chest pain COVID Results: SARS-CoV-2 Antigen (Rapid) negative (Negative) 06/23/22 08:56 Review of Systems Const: Denies: fever(s), chills or fatigue Eyes: Denies: change in vision or eye discomfort ENMT: Denies: throat pain, odynophagia, nasal discharge or nasal congestion Card: Denies: chest pain, palpitations, edema, swelling of feet/ankles, dyspnea on exertion or orthopnea Resp: Denies: dyspnea, productive cough or non-productive cough GI: Reports: nausea and vomiting; Denies: abdominal pain, diarrhea, constipation or hematochezia : Denies: flank pain, dysuria or hematuria Musc: Denies: neck pain, back pain or extremity swelling Skin/Breast: Denies: rash or new lesions Neuro: Denies: headache(s), numbness in extremities or weakness in extremities [facility] ED PFSH: Medical History Anemia Morbid obesity with BMI of 40.0-44.9, adult Right shoulder strain Surgical History Hx of cholecystectomy Social History Smoking and tobacco status: never smoked Alcohol intake: never Current occupational status: employed Female Reproductive History: Date of last menstrual period: 12/04/19 Physical Exam Const: COMMON NORMALS: no acute distress, patient oriented x3, healthy appearing and alert GENERAL APPEARANCE: cooperative and comfortable HENMT: COMMON NORMALS: normocephalic HEAD & SCALP: normocephalic MOUTH: Normal oral and palatal mucosa present THROAT: posterior oropharynx normal and uvula midline Neck/C-Spine: COMMON NORMALS: supple GENERAL: Yes normal visual inspection Resp: COMMON NORMALS: normal respiratory effort, No retractions, No use of accessory muscles and clear to auscultation bilaterally AUSCULTATION: clear to auscultation bilaterally Cardio: COMMON NORMALS: regular rate, regular rhythm, S1 normal heart sound present, S2 normal heart sound present, No gallops present (Cardio), No clicks present (Cardio), No murmurs present (Cardio) and Peripheral pulses 2+ throughout RATE: regular rate RHYTHM: regular rhythm HEART SOUNDS: S1 normal heart sound present and S2 normal heart sound present PERIPHERAL PULSES: Peripheral pulses 2+ throughout GI: COMMON NORMALS: Normal to inspection, nondistended, normoactive bowel sounds present, Soft to palpation, non-tender and no masses PALPATION: Yes Soft to palpation : COMMON NORMALS: Yes no CVA tenderness BLADDER/KIDNEY EXAM: Yes no CVA tenderness Back/Pelvis: COMMON NORMALS: no CVA tenderness Neuro: COMMON NORMALS: patient oriented x3 SENSORIUM/ORIENTATION: Yes alert GAIT: Yes Normal gait present Course Vital Signs: Vital signs: Vital Signs Temperature 97.7 F 06/23/22 09:03 Pulse Rate 82 06/23/22 09:03 Respiratory Rate 13 06/23/22 09:03 Blood Pressure 135/86 06/23/22 09:03 Pulse Oximetry 97 06/23/22 09:31 Oxygen Delivery Me thod 06/23/22 09:31 MDM - COVID Medical Decision Making Patient is a 32-year-old female comes to the ED after COVID exposure. Patient's been around a person who was recently diagnosed with COVID. Over the last day she endorses some nausea and had an episode of emesis today. She denies any other symptoms. Vitals are stable. Patient peers nontoxic in no acute distress or pain. Rest of exam is benign. Patient was given dose of IM Zofran to help with nausea. Rapid COVID test was negative. Patient was diagnosed with encounter for laboratory testing for COVID-19 and was stable for discharge home. Return to ED precautions given. Follow-up with PCP in the next week for reevaluation. Patient was discharged home with a prescription for some Zofran to help with any nausea. Patient understood and agreed with plan. Lab Data I reviewed the patient's lab results. Laboratory Results SARS-CoV-2 Ag (Rapid) negative (Negative) 06/23/22 08:56 SARS-CoV-2 Antigen (Rapid) negative (Negative) 06/23/22 08:56 Discharge Plan Discharge Patient Disposition: Home Clinical Impression: Encounter for laboratory testing for COVID-19 virus Condition: Stable Prescriptions: New ondansetron 4 mg tablet,disintegrating 4 mg PO Q8H PRN (Reason: nausea and vomiting) Qty: 12 0RF No Action amoxicillin 500 mg capsule 500 mg PO BID 10 Days Qty: 20 0RF Discharge Orders: Discharge ED (Routine); Ordered 06/23/22 Ordered By: Shailesh Vergara Discharge Diet: Regular Discharge Activity: Increase activity as tolerated Activity Restrictions/Additional Instructions: Follow-up with medical provider as directed in the next 5 to 7 days for reevaluation. Take medications as prescribed. Return to the ER or your medical provider if condition worsens. Please read and understand discharge instructions. Thank you for choosing [facility] for your healthcare needs today. Please realize this is an emergency room and that we are providing you with a medical screening exam and this may not be complete and all inclusive of all the testing and or work up that you may need to determine your ailment or severity of your illness. It is very important that you follow up as instructed or that you return to the Emergency Department should you have concerns or if your condition changes or worsens in any way. Coding Level of Care Code ED Manager Domestic for Sharad Barnes Exam Comprehensive
[2022-06-23 09:31] VITALS: O2SAT 97
[2022-06-23] MEDS: ondansetron 2 mg/ML SDV 2 mL 4 MG IM (09:32)
[2022-06-23 09:52] LABS: SARS Covid-2 Antigen negative (Negative)
== END 2022-06-23 09:30 | disposition home or self-care (01) ==
PROVIDERS: Emergency Provider Physician Assistant
DX: Z20.822 Contact with and (suspected) exposure to COVID-19 (principal)
CPT/HCPCS: 87426; 96372; 99284; J2405

== ENCOUNTER 2022-06-24 05:38 | Emergency (ER) | payer OTHER, SELFPAY ==
[2022-06-24 05:55] VITALS: BP 127/83; PULSE 94; RESP 18; TEMP 36.4; O2SAT 98
--- NOTE | 2022-06-24 06:10 | ED_ITS ---
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 Needle was a 23-gauge needle it had been used. Incidentally patient recently seen for sore throat and had a positive strep culture is currently off oral antibiotics for strep. MD complaint: Needlestick Onset (ago): minute(s) Relieving factors: none Exacerbating factors: none Associated symptoms: Reports no associated symptoms; Deny chest pain, dyspnea, malaise, nausea, rash or vomiting Treatments prior to arrival: none Review of Systems Const: Denies: fever(s), chills, body aches, change in appetite, fatigue or malaise ENMT: Reports: throat pain Card: Denies: chest pain, edema, dyspnea on exertion or orthopnea Resp: Denies: dyspnea, productive cough or non-productive cough GI: Denies: abdominal pain, nausea, vomiting, hematemesis, coffee ground emesis, diarrhea, constipation, bloating, hematochezia or melena : Denies: flank pain, difficulty voiding, dysuria, urinary frequency or urinary urgency Skin/Breast: Denies: rash or pruritus PFS ED PFSH: Medical History Anemia Morbid obesity with BMI of 40.0-44.9, adult Right shoulder strain Surgical History Hx of cholecystectomy Social History Smoking and tobacco status: never smoked Alcohol intake: never Current occupational status: employed Female Reproductive History: Date of last menstrual period: 12/04/19 Physical Exam Const: COMMON NORMALS: no acute distress GENERAL APPEARANCE: cooperative and comfortable ORIENTATION/CONSCIOUSNESS: Yes awake, Yes oriented to person, Yes oriented to place and Yes oriented to time HENMT: COMMON NORMALS: normocephalic and atraumatic HEAD & SCALP: normocephalic and atraumatic Resp: COMMON NORMALS: normal respiratory effort, No retractions, No use of accessory muscles and clear to auscultation bilaterally AUSCULTATION: clear to auscultation bilaterally Cardio: COMMON NORMALS: regular rate, regular rhythm and No murmurs present (Cardio) RATE: regular rate RHYTHM: regular rhythm Extremity: OTHER: Superficial abrasion to the posterior medial aspect of the right upper arm. It is about the 3 to 4 inches in length. Some dried blood present. There is an even more superficial abrasion further out or there is no bleeding. Neuro: SENSORIUM/ORIENTATION: Yes oriented to person, Yes oriented to place and Yes oriented to time Skin: COMMON NORMALS: no rashes or lesions noted GENERAL SKIN EXAM: no rashes or lesions noted Course Vital Signs: Vital signs: Vital Signs Temperature 97.6 F 06/24/22 05:55 Pulse Rate 94 06/24/22 05:55 Respiratory Rate 18 06/24/22 05:55 Blood Pressure 127/83 06/24/22 05:55 Pulse Oximetry 98 06/24/22 05:55 Oxygen Delivery Me thod 06/24/22 05:55 MDM - General Adult Medical Decision Making Relatively low incidence for transmission. Small gauge needle and was not technically a needlestick to more of an abrasion. Patient declines a anti-HIV prophylaxis. Routine labs have been done and are pending. Nursing pleating supervisor is having the source patient tested. Medical Records I reviewed the patient's medical records. Lab Data I reviewed the patient's lab results. Discharge Plan Discharge Patient Disposition: Home Clinical Impression: Exposure to blood, Needlestick injury of upper arm Condition: Stable Prescriptions: No Action amoxicillin 500 mg capsule 500 mg PO BID 10 Days Qty: 20 0RF ondansetron 4 mg tablet,disintegrating 4 mg PO Q8H PRN (Reason: nausea and vomiting) Qty: 12 0RF Discharge Orders: Discharge ED (Routine); Ordered 06/24/22 Ordered By: Bobo Godoy Discharge Diet: Usual diet Discharge Activity: Resume usual activity Patient Instructions: Opioid Safety, Pain Management Activity Restrictions/Additional Instructions: Follow-up with employee health for completion of testing. He may return to work without restrictions. Coding Level of Care Code ED Radial Router Operator for Sharad Barnes
[2022-06-24 06:34] LABS: Alanine Aminotransferase 75 U/L (0-33); Albumin Level 3.8 g/dL (3.5-5.2); Alkaline Phosphatase 121 U/L (35-105); Anion Gap 12.6 (5-19); Aspartate Amino Transferase 54 U/L (0-32); Blood Urea Nitrogen 10 mg/dL (6-20); Carbon Dioxide 24 mmol/L (22-29); Chloride 103 mmol/L (98-107); Globulin 3.9 g/dL (1.3-4.6); Glomerular Filtration Rate 114.4 mL/min (90-130); Glucose 87 mg/dL (65-115); Osmolality Calculated 280 mOsm/kg (285-295); Potassium 3.6 mmol/L (3.5-5.1); Sodium 136 mmol/L (136-145); Total Bilirubin 0.8 mg/dL (0.15-1.2); Total Protein 7.7 g/dL (6.6-8.7)
[2022-06-24 07:28] LABS: Hepatitis A Antibody IgM Non-Reactive (Nonreactive); Hepatitis B Core IgM Non-Reactive (Nonreactive); Hepatitis B Surface Antigen Non-Reactive (Nonreactive); Hepatitis C Virus Antibody Non-Reactive (Nonreactive)
[2022-06-24 07:32] LABS: HIV 1 & 2 Antibody Non-Reactive (Non-Reactiv); HIV 1 & 2 Antigen Non-Reactive (Non-Reactiv)
== END 2022-06-24 06:25 | disposition home or self-care (01) ==
PROVIDERS: Emergency Provider Family Medicine
DX: S41.131A Puncture wound without foreign body of right upper arm, initial encounter (principal); W46.1XXA Contact with contaminated hypodermic needle, initial encounter
CPT/HCPCS: 36415; 80053; 80074; 87806; 99283

== ENCOUNTER 2022-08-31 09:04 | Outpatient (CLI) | payer OTHER, SELFPAY ==
[2022-08-31 09:27] LABS: Chol HDL Ratio 2.38 mg/dL (0.0-4.40); Cholesterol 138 mg/dL (0-200); Glucose 83 mg/dL (65-115); HDL Cholesterol 58 mg/dL (60-100); LDL Cholesterol Calculated 72 mg/dL (50-129); LDL HDL Ratio 1.24 RATIO (0.00-3.22); Triglycerides 39 mg/dL (0-150)
[2022-08-31 10:28] LABS: Estmated Average Glucose 97
== END 2022-08-31 09:05 | disposition home or self-care (01) ==
PROVIDERS: Visit Provider Family Medicine
DX: Z01.89 Encounter for other specified special examinations (principal)
CPT/HCPCS: 80061; 82947; 83036

== ENCOUNTER → 2022-10-18 07:58 | Outpatient (BNVA) | payer OTHER, SELFPAY | PROVIDERS: Visit Provider Podiatrist Foot & Ankle Surgery | DX: L60.3 Nail dystrophy (principal); M65.872 Other synovitis and tenosynovitis, left ankle and foot | CPT/HCPCS: 73630 ==

== ENCOUNTER 2023-01-30 00:54 | Emergency (ER) | payer OTHER, BC, MEDICAID, SELFPAY ==
--- NOTE | 2023-01-30 00:58 | ED_ITS ---
HPI - Skin/Abscess/Foreign Bdy General: Stated complaint: Spot Right Ankle Time Seen by Provider: 01/30/23 00:56 History of Present Illness: 32-year-old female comes in today with complaints of rash to the posterior aspect of the right lower leg. Patient reports that it is tender to touch. Patient appears nontoxic. Patient appears no other distress. Patient denies any chronic medical problems or routine medications. Associated symptoms: Deny fever(s) or vomiting Review of Systems General: Reports: 10 or more systems reviewed and unremarkable except in HPI and below Const: Denies: fever(s) GI: Denies: vomiting Skin/Breast: Reports: rash and erythema PFSH ED PFSH: Medical History Anemia Morbid obesity with BMI of 40.0-44.9, adult Right shoulder strain Surgical History Hx of cholecystectomy Social History Smoking and tobacco status: never smoked Alcohol intake: never Substance/Drug Use: never Current occupational status: employed Physical Exam 2 Const: COMMON NORMALS: alert HENMT: COMMON NORMALS: normocephalic HEAD & SCALP: normocephalic Resp: COMMON NORMALS: normal respiratory effort Cardio: COMMON NORMALS: regular rate RATE: regular rate Extremity: COMMON NORMALS: normal to inspection Neuro: SENSORIUM/ORIENTATION: Yes alert Skin: RASHES: rashes noted (Crusted papules with redness posterior right lower leg) MDM - Skin/Abscess/Foreign Bdy Medicial Decision Making Patient comes in today for rash to the right lower leg. On exam patient has some crusted lesions to the posterior aspect of the right lower leg. Differential diagnosis includes folliculitis, contact dermatitis, herpetic lesions, fungal infection. Believe the patient probably has an infectious folliculitis secondary to bacterium. Recommend cefdinir 300 twice daily for 10 days. Recommend follow-up with primary care as needed for worsening symptoms. Patient reported understanding agreed to plan. Discharge Plan Discharge Patient Disposition: Home Clinical Impression: Folliculitis Condition: Stable Prescriptions: New cefdinir 300 mg capsule 300 mg PO BID 10 Days Qty: 20 0RF No Action meloxicam 15 mg tablet 15 mg PO DAILY Qty: 30 1RF ondansetron 4 mg tablet,disintegrating 4 mg PO Q8H PRN (Reason: nausea and vomiting) Qty: 12 0RF Discharge Orders: Discharge ED (Routine); Ordered 01/30/23 Ordered By: Carlos Huitron Referrals: Hank Nuñez MD [Primary Care Provider] - Discharge Diet: Usual diet Discharge Activity: Increase activity as tolerated Patient Instructions: Folliculitis (ED) Activity Restrictions/Additional Instructions: Home and rest. Use antibiotic 1 tablet twice a day for the next 10 days. Gently wash area with mild soap and water 2 times a day. Do not pick at the lesions. Avoid scratching the area. This is infectious and it can be spread to other parts of the body. Drink plenty of water with medication. Follow-up with primary care in 2 weeks if no improvement earlier if worsening symptoms. Coding Level of Care Code ED Bridge Saw Operator for Sharad Barnes
[2023-01-30 01:03] VITALS: BP 155/96; PULSE 82; RESP 18; TEMP 37.1; O2SAT 99
[2023-01-30] MEDS: cefdinir 300 MG CAPSULE PO (01:18)
[2023-01-30 01:19] VITALS: BP 126/98; PULSE 73; RESP 16; O2SAT 96
== END 2023-01-30 01:22 | disposition home or self-care (01) ==
PROVIDERS: Emergency Provider Nurse Practitioner Family; PCP Family Medicine
DX: L73.9 Follicular disorder, unspecified (principal); E66.01 Morbid (severe) obesity due to excess calories; Z68.41 Body mass index [BMI] 40.0-44.9, adult
CPT/HCPCS: 99283

== ENCOUNTER 2023-04-10 01:03 | Emergency (ER) | payer OTHER, BC, MEDICAID, SELFPAY ==
[2023-04-10 01:08] VITALS: BP 135/86; PULSE 81; RESP 16; TEMP 36.4; O2SAT 98; BMI 35.5
--- NOTE | 2023-04-10 01:14 | XRR_ITS ---
PROCEDURE INFORMATION: Exam: XR Lumbosacral Spine Exam date and time: 04/10/2023 1:19 AM Age: 33 years old Clinical indication: Injury or trauma; Blunt trauma (contusions or hematomas); Prior surgery; Surgery date: 6+ months; Surgery type: Gb. Iud; Patient HX: Yesterday patient was working on an auto motor that was free of ro and it slipped falling onto her. C/O left sided low back pain. ; Additional info: Fall injury TECHNIQUE: Imaging protocol: Radiologic exam of the lumbosacral spine. Views: 2 or 3 views. COMPARISON: No relevant prior studies available. FINDINGS: Bones/joints: There are 5 lumbar type vertebrae in normal alignment. Mild multilevel endplate spurring is noted. There is no evidence of acute fracture. Symmetric sacroiliac joints. Soft tissues: Unremarkable. XR/XR lumbar spine 2-3V* [id number] IMPRESSION: No acute lumbar spine abnormality. Mild degenerative change.
--- NOTE | 2023-04-10 01:14 | W.ED.BACK ---
HPI - Back Pain/Injury General: Chief Complaint: Back Pain/Injury Stated Complaint: back pain Time Seen by Provider: 04/10/23 01:08 History of Present Illness: 33-year-old female comes in today for evaluation of injuries sustained when she was changing the injury now on her car. Patient reports the engine slipped off of the chain coming down onto her left abdomen. Patient reports since then she has had some pain in her low back radiating down her left leg. Patient been able to move without difficulty denies any soreness in the abdomen. Patient appears nontoxic. Patient moves all extremities well. Review of Systems General: Reports: 10 or more systems reviewed and unremarkable except in HPI and below Musc: Reports: back pain and joint pain (Left hip and low back) PFS ED PFSH: Medical History Anemia Morbid obesity with BMI of 40.0-44.9, adult Right shoulder strain Surgical History Hx of cholecystectomy Social History Smoking and tobacco status: never smoked Alcohol intake: never Substance/Drug Use: never Current occupational status: employed Physical Exam Const: COMMON NORMALS: alert HENMT: COMMON NORMALS: normocephalic HEAD & SCALP: normocephalic Neck/C-Spine: COMMON NORMALS: full ROM Resp: COMMON NORMALS: normal respiratory effort and clear to auscultation bilaterally AUSCULTATION: clear to auscultation bilaterally Cardio: COMMON NORMALS: regular rate and regular rhythm RATE: regular rate RHYTHM: regular rhythm Back/Pelvis: THORACIC SPINE/UPPER BACK: No thoracic spinal tenderness and No paraspinal muscle tenderness LUMBAR SPINE/LOWER BACK: Yes lumbar spinal tenderness Lumbar spinal tenderness location: L4 and L5 and Yes paraspinal muscle tenderness Lumbar paraspinal muscle tenderness: left Extremity: LEFT LOWER EXTREMITY: Yes hip joint (No palpable hip pain) Neuro: SENSORIUM/ORIENTATION: Yes alert Skin: COMMON NORMALS: turgor normal GENERAL SKIN EXAM: turgor normal Course Vital Signs: Vital signs: Vital Signs Temperature 97.6 F 04/10/23 01:08 Pulse Rate 81 04/10/23 01:08 Respiratory Rate 16 04/10/23 01:08 Blood Pressure 135/86 09/17/23 01:08 Pulse Oximetry 98 04/10/23 01:08 MDM - Back Pain/Injury Medical Decision Making 33-year-old female comes in today with complaints of left lower back pain radiating down her left leg. Patient reports injury occurred when she was working on her car when the chain slipped causing the engine to come down onto her left abdomen. Patient was able to slide out from under the engine but since then has had pain and discomfort to the low back radiating down her left leg. Patient appears nontoxic. Abdomen soft nontender. Bowel sounds are present. Patient moves extremities all well. Patient does have some lower lumbar spinal tenderness and some left lower lumbar paraspinal muscle tenderness. Patient moves all extremities well. Distal pulses and sensation are intact. Vital signs are normal. Differential diagnosis includes but not limited to lumbar strain, intervertebral disc disease, facet arthropathy, contusion. X-ray was unremarkable for acute injury, patient did have some mild loss of disc space between L5 and S1. Believe patient probably has some lumbar radiculopathy due to the activity of the removal of the engine and may not directly be related to the engine coming down on the patient. I reviewed the exam with patient with recommendations for treatment and follow-up. Patient reported understanding and agreed to plan. XR interpretation done by ED provider, pending radiology final review Discharge Plan Discharge Patient Disposition: Home Clinical Impression: Lumbar radiculopathy Condition: Stable Prescriptions: New naproxen 500 mg tablet 500 mg PO BID Qty: 20 0RF cyclobenzaprine 5 mg tablet 5 mg PO .hs Qty: 10 0RF hydrocodone-acetaminophen 5-325 mg tablet 1 tab PO BID PRN (Reason: pain (scale score 7-10)) Qty: 7 0RF No Action meloxicam 15 mg tablet 15 mg PO DAILY Qty: 30 1RF triamcinolone acetonide 0.1 % cream 1 applic topical TID Qty: 30 2RF ondansetron 4 mg tablet,disintegrating 4 mg PO Q8H PRN (Reason: nausea and vomiting) Qty: 12 0RF Discharge Orders: Discharge ED (Routine); Ordered 04/10/23 Ordered By: Carlos Huitron Referrals: Hank Nuñez MD [Primary Care Provider] - Discharge Diet: Usual diet Discharge Activity: Increase activity as tolerated Patient Instructions: Lumbar Radiculopathy (ED) Activity Restrictions/Additional Instructions: Try to maintain activity is much as possible. Gentle stretching and range of motion exercises. Drink plenty of water with medications. Use naproxen 500 mg 1 tablet twice a day for the next 10 days for pain and inflammation. Use acetaminophen for further pain relief. Use cyclobenzaprine at bedtime to help with muscle relaxation and improve pain control. Follow-up with primary care in 3 to 5 days for recheck. Return to ED for new concerns or worsening symptoms such as high fever, loss of bowel or bladder control, or inability to walk. Coding Level of Care Code ED General House Worker for Sharad Barnes
[2023-04-10] MEDS: HYDROcodone-acetaminophen 5-325 mg Tablet 1 TAB PO (01:46)
[2023-04-10 01:52] VITALS: RESP 17
== END 2023-04-10 01:53 | disposition home or self-care (01) ==
PROVIDERS: Emergency Provider Nurse Practitioner Family; PCP Family Medicine
DX: M54.16 Radiculopathy, lumbar region (principal)
CPT/HCPCS: 72100; 99283

== ENCOUNTER → 2023-04-17 11:50 | Outpatient (BNVA) | payer OTHER, BC, MEDICAID, SELFPAY | PROVIDERS: PCP Family Medicine; Visit Provider Nurse Practitioner | DX: R50.9 Fever, unspecified (principal); H65.192 Other acute nonsuppurative otitis media, left ear; J00 Acute nasopharyngitis [common cold] | CPT/HCPCS: 87426 ==

== ENCOUNTER → 2023-07-01 12:48 | Outpatient (BNVA) | payer OTHER, BC, MEDICAID, SELFPAY | PROVIDERS: PCP Family Medicine; Visit Provider Registered Nurse Neonatal Intensive Care | DX: J02.9 Acute pharyngitis, unspecified (principal); R50.9 Fever, unspecified; U07.1 COVID-19 | CPT/HCPCS: 87400; 87426; 87880 ==

== ENCOUNTER → 2023-07-21 06:50 | Outpatient (BNVA) | payer OTHER, BC, MEDICAID, SELFPAY | PROVIDERS: PCP Family Medicine; Visit Provider Podiatrist Foot & Ankle Surgery | DX: G57.61 Lesion of plantar nerve, right lower limb; M21.621 Bunionette of right foot | CPT/HCPCS: 73630 ==

== ENCOUNTER 2023-09-08 14:40 | Emergency (ER) | payer OTHER, MEDICAID, SELFPAY ==
[2023-09-08 14:48] VITALS: BP 139/92; PULSE 78; RESP 18; TEMP 36.8; O2SAT 99
--- NOTE | 2023-09-08 14:53 | XR_ITS ---
WS: [id number] Left hip, AP and frog-leg views, 09/08/2023 Clinical Data: injury, strain Comparison: None. Findings: No fractures or dislocations are seen. The hip joint is intact. The soft tissues are not remarkable. The adjacent pelvis is normal. Impression: Negative left hip. Tonnis classification: grade 0: normal radiographs
--- NOTE | 2023-09-08 14:53 | W.ED.EXTPRO ---
HPI - Extremity Problem General: Chief complaint: Extremity Problem,Nontraumatic Stated complaint: left side hip pain Time Seen by Provider: 09/08/23 14:53 History of Present Illness: 33-year-old female comes in today for complaints of left hip pain. Patient reports on Tuesday she was helping her son out of the car when she twisted feeling a popping sensation in the lateral left hip. Since then patient has had pain and discomfort to the hip. Patient reports most comfortable position she is found with keeping her leg outstretched when sitting. Patient denies any chronic problems with the hip pain. Patient appears nontoxic. Patient appears in mild to moderate pain. Review of Systems General: Reports: 10 or more systems reviewed and unremarkable except in HPI and below Musc: Reports: joint pain (Left lateral hip) [facility] ED PFSH: Medical History Anemia Morbid obesity with BMI of 40.0-44.9, adult Right shoulder strain Surgical History Hx of cholecystectomy Social History Smoking and tobacco/nicotine status: never used tobacco/nicotine Alcohol intake: never Substance/Drug Use: never Current occupational status: employed Physical Exam Const: COMMON NORMALS: alert HENMT: COMMON NORMALS: normocephalic HEAD & SCALP: normocephalic Neck/C-Spine: COMMON NORMALS: full ROM Resp: COMMON NORMALS: normal respiratory effort Back/Pelvis: COMMON NORMALS: thoracic and lumbar spine normal to inspection Extremity: LEFT LOWER EXTREMITY: Yes hip joint (Lateral hip tenderness on palpation. No inguinal pain) Left hip: Yes inspection, Yes palpation, Yes ROM (Decreased due to pain) and Yes neurovascular exam Neuro: SENSORIUM/ORIENTATION: Yes alert Skin: COMMON NORMALS: turgor normal GENERAL SKIN EXAM: turgor normal Course Vital Signs: Vital signs: Vital Signs Temperature 98.3 F 09/08/23 14:48 Pulse Rate 78 09/08/23 14:48 Respiratory Rate 18 09/08/23 14:48 Blood Pressure 139/92 09/08/23 14:48 Pulse Oximetry 99 09/08/23 14:48 Oxygen Delivery Me thod Room Air 09/08/23 14:48 MDM - Extremity (Nontraumatic) Medical Decision Making 33-year-old female comes in today for complaints of left hip injury. On exam patient has tenderness to the lateral left hip on palpation. No redness or bruising is noted. Skin is warm and dry. Patient decreased range of motion of the hip due to pain. No inguinal tenderness. Differential diagnosis includes dislocation, fracture, strain, tendinitis. Believe the patient most likely has strained her hip and may have caused a secondary tendinitis. Will give her dexamethasone IM 10 mg, Toradol 30 mg, keep her on diclofenac, and use some hydrocodone for severe pain. Patient reported understanding of care plan. And need for follow-up or return to the ER. All radiology interpretation(s) finalized by discharge Discharge Plan Discharge Patient Disposition: Home Clinical Impression: Tendinitis of left hip Condition: Stable Prescriptions: New diclofenac sodium 75 mg tablet,delayed release (DR/EC) 75 mg PO BID Qty: 20 0RF hydrocodone-acetaminophen 5-325 mg tablet 1 tab PO Q8H PRN (Reason: pain (scale score 7-10)) Qty: 10 0RF Discharge Orders: Discharge ED (Routine); Ordered 09/08/23 Ordered By: Carlos Huitron Referrals: Hank Nuñez MD [Primary Care Provider] - Discharge Diet: Usual diet Discharge Activity: Increase activity as tolerated Patient Instructions: Tendinitis (ED) Activity Restrictions/Additional Instructions: Activity as tolerated. Avoid strenuous activity until pain resolves. Use ice and heat to the area to help with pain. Use acetaminophen for further pain relief. Take diclofenac 75 mg twice a day for pain and inflammation. Avoid the use of diclofenac with naproxen or ibuprofen. These are similar medications and may cause gastric irritation or damage to the kidneys if used together. Follow-up with primary care as needed. Return to ER for new concerns. Stand Alone Forms: Work/School Release Coding Level of Care Code ED Manager [employer] for Sharad Barnes
[2023-09-08] MEDS: HYDROcodone-acetaminophen 7.5-325 mg Tablet 1 TAB PO (15:29)
[2023-09-08] MEDS: dexamethasone 10 mg/mL INJ IM (15:29)
[2023-09-08] MEDS: ketorolac 30 mg/mL INJ IM (15:31)
== END 2023-09-08 15:40 | disposition home or self-care (01) ==
PROVIDERS: Emergency Provider Nurse Practitioner Family; PCP Family Medicine
DX: M76.9 Unspecified enthesopathy, lower limb, excluding foot (principal)
CPT/HCPCS: 73502; 96372; 99284; J1100; J1885

== ENCOUNTER 2024-03-17 00:22 | Outpatient (CLI) | payer MEDICAID, SELFPAY ==
[2024-03-17 00:32] LABS: SARS Covid-2 Antigen Positive (Negative)
== END 2024-03-17 00:23 | disposition home or self-care (01) ==
PROVIDERS: PCP Family Medicine; Visit Provider Emergency Medicine
DX: Z01.89 Encounter for other specified special examinations (principal)
CPT/HCPCS: 87426

== ENCOUNTER → 2024-05-15 14:14 | Outpatient (BNVA) | payer MEDICAID, SELFPAY | PROVIDERS: PCP Family Medicine; Visit Provider Podiatrist Foot & Ankle Surgery | DX: Z98.890 Other specified postprocedural states (principal) | CPT/HCPCS: 87070; 87075; 87205 ==

== ENCOUNTER 2025-03-26 05:34 | Outpatient (CLI) | payer OTHER, SELFPAY ==
[2025-03-26 06:51] LABS: Hepatitis B Surface Antigen Non-Reactive (Nonreactive)
[2025-03-26 07:26] LABS: HIV 1 & 2 Antigen Non-Reactive (Non-Reactiv)
== END 2025-03-26 05:35 | disposition home or self-care (01) ==
LOC: LAB 05:38
PROVIDERS: Family Medicine; PCP Family Medicine; Visit Provider Family Medicine
DX: Z01.89 Encounter for other specified special examinations (principal)
CPT/HCPCS: 36415; 86706; 86803; 87340; 87806

== ENCOUNTER 2025-06-21 15:52 | Emergency (ER) | payer OTHER, SELFPAY ==
[2025-06-21 16:04] VITALS: PULSE 100; RESP 18; TEMP 36.4; O2SAT 98; BMI 37.9
--- NOTE | 2025-06-21 16:59 | W.ED.URI ---
HPI - URI/Sore Throat General: Chief Complaint: Upper Respiratory Infection Stated Complaint: Throat Swelling Fever Coughing Time Seen by Provider: 06/21/25 16:35 History of Present Illness: Patient is 35-year-old female without medical issues that reports to the emergency room with sore throat, upper respiratory congestion. This has been going on for 2 days. She has association of unknown amount of fever at home. Son was diagnosed with metapneumovirus on 06/16. No hearing change. Minimal upper respiratory congestion, cough. This nonproductive. Associated symptoms: Reports fever(s); Deny abdominal pain, chills, chest pain, nausea or vomiting Related Data Previous Rx's ?Medication ?Instructions ?Recorded diclofenac sodium 75 mg 75 mg PO BID #20 tabs 09/08/23 tablet,delayed release meloxicam 15 mg tablet 15 mg PO DAILY #30 tabs 12/21/23 silver sulfadiazine 1 % topical 1 applic topical BID #50 grams 04/12/24 cream (Silvadene) mupirocin 2 % topical ointment 1 applic topical BID 2 weeks #22 04/27/24 grams acetaminophen 300 mg-codeine 30 mg 1 tab PO Q6H PRN pain #20 tabs 05/15/24 tablet sulfamethoxazole 800 1 tab PO BID #14 tabs 05/15/24 mg-trimethoprim 160 mg tablet (Bactrim DS) azithromycin 500 mg tablet See Rx Instructions PO .COMPLEX #5 06/21/25 tabs Allergies Allergy/AdvReac Type Severity Reaction Status Date / Time No Known Allergies Allergy Verified 05/15/24 13:55 Review of Systems General: Reports: 10 or more systems reviewed and unremarkable except in HPI and below Const: Reports: fever(s); Denies: chills Eyes: Denies: change in vision ENMT: Reports: throat pain, enlarged tonsils and odynophagia; Denies: dental pain or dry mouth Card: Denies: chest pain or palpitations Resp: Denies: dyspnea or productive cough GI: Denies: abdominal pain, nausea or vomiting : Denies: flank pain Musc: Denies: neck pain or back pain Skin/Breast: Reports: erythema and skin tenderness; Denies: rash Neuro: Denies: numbness in extremities, sensory changes or frequent falls Psych: Denies: anxiety or depression Arden/Lymph: Denies: easy bruising PFSH ED PFSH: Medical History (Updated 06/21/25 @ 17:03 by SIMON Bradshaw) Anemia Morbid obesity with BMI of 40.0-44.9, adult Right shoulder strain Surgical History (Updated 05/15/24 @ 15:12 by Lizandro Buckley DPM) Hx of cholecystectomy Social History Smoking and tobacco/nicotine status: current every day tobacco/nicotine user Alcohol intake: never Substance/Drug Use: never Current occupational status: employed Physical Exam Const: COMMON NORMALS: no acute distress, average body habitus, patient oriented x3, no limitations, healthy appearing, alert and well nourished HENMT: COMMON NORMALS: normocephalic, atraumatic, hearing grossly normal bilaterally, external ears normal, TM's normal bilaterally and Normal external nose present HEAD & SCALP: normocephalic and atraumatic FACE & SINUS: normal facial exam, sinuses nontender and face symmetric NOSE: Normal external nose present and Normal nares present EXTERNAL EAR: Yes external ears normal TYMPANIC MEMBRANE: TM's normal bilaterally MOUTH: Abnormal oral and palatal mucosa present erythematous, edematous and white patches Eye: COMMON NORMALS: Equal, round and reactive pupils present, EOMs intact bilaterally, conjunctivae normal, no scleral icterus and no papilledema CONJUNCTIVA: Yes conjunctivae normal PUPIL: Yes Equal, round and reactive pupils present DIRECT OPHTHALMOSCOPY: Yes no papilledema Neck/C-Spine: COMMON NORMALS: full ROM, no lymphadenopathy, supple, no meningeal signs and no JVD Lymph: LYMPHATIC: no lymphadenopathy noted Cardio: COMMON NORMALS: no JVD, regular rate, regular rhythm, S1 normal heart sound present, S2 normal heart sound present, No gallops present (Cardio), No clicks present (Cardio), No murmurs present (Cardio), No rub (Cardio) and Peripheral pulses 2+ throughout RATE: regular rate RHYTHM: regular rhythm HEART SOUNDS: S1 normal heart sound present and S2 normal heart sound present PERIPHERAL PULSES: Peripheral pulses 2+ throughout GI: COMMON NORMALS: Normal to inspection, nondistended, normoactive bowel sounds present, Soft to palpation, non-tender and No hepatosplenomegaly present PALPATION: Yes Soft to palpation and Yes No hepatosplenomegaly present : COMMON NORMALS: Yes no CVA tenderness BLADDER/KIDNEY EXAM: Yes no CVA tenderness Back/Pelvis: COMMON NORMALS: no CVA tenderness Extremity: COMMON NORMALS: normal to inspection, full ROM, capillary refill normal, no joint enlargement, no clubbing, cyanosis or edema, no calf tenderness and no pedal edema Neuro: COMMON NORMALS: patient oriented x3 SENSORIUM/ORIENTATION: Yes alert MENINGEAL SIGNS: Yes no meningeal signs Course Vital Signs: Vital signs: Vital Signs Temperature 97.6 F 06/21/25 16:04 Pulse Rate 100 06/21/25 16:04 Respiratory Rate 18 06/21/25 16:04 Pulse Oximetry 98 06/21/25 16:04 Oxygen Delivery Me thod Room Air 06/21/25 16:04 MDM - URI/Sore Throat Medical Decision Making Patient is 35-year-old female that reports to ER due to sore throat, and upper respiratory symptoms. This started approximately 2 days ago. Son was diagnosed with metapneumovirus. Patient states she has hoarseness with association. On physical examination, she had pharyngitis, which changes to her throat. She would like an antibiotic. Her strep is negative. This will account for any inappropriate swabbing. Suspect patient is viral in nature however. Patient's strep came back negative. She elected to be treated with antibiotics which were sent to the pharmacy. All of her questions answered to her satisfaction. Medical Records I reviewed the patient's medical records. Lab Data Laboratory Results Group A Strep Rapid Negative (Negative) 06/21/25 16:38 No radiology studies performed this visit Discharge Plan Discharge Patient Disposition: Home Clinical Impression: Upper respiratory infection Qualifiers: URI type: unspecified viral URI Qualified Code(s): J06.9 - Acute upper respiratory infection, unspecified Pharyngitis Qualifiers: Pharyngitis/tonsillitis etiology: unspecified etiology Qualified Code(s): J02.9 - Acute pharyngitis, unspecified Condition: Stable Prescriptions: New azithromycin 500 mg tablet See Rx Instructions .ROUTE .COMPLEX Qty: 5 0RF Rx Instructions: For 250 mg dose pack: take 500 mg today (day 1), then 250 mg for 4 days (days 2-5) No Action meloxicam 15 mg tablet 15 mg PO DAILY Qty: 30 1RF mupirocin 2 % ointment 1 applic topical BID 14 Days Qty: 22 2RF silver sulfadiazine [Silvadene] 1 % cream 1 applic topical BID Qty: 50 0RF Rx Instructions: apply a 1.5 mm thickness sulfamethoxazole-trimethoprim [Bactrim DS] 800-160 mg tablet 1 tab PO BID Qty: 14 0RF acetaminophen-codeine 300-30 mg tablet 1 tab PO Q6H PRN (Reason: pain) Qty: 20 0RF diclofenac sodium 75 mg tablet,delayed release (DR/EC) 75 mg PO BID Qty: 20 0RF Discharge Orders: Discharge ED (Routine); Ordered 06/21/25 Ordered By: Marva Westbrook Referrals: Hank Nuñez MD [Primary Care Provider, Family Practice] Discharge Diet: Usual diet Discharge Activity: Resume usual activity Patient Instructions: Patient Portal & [place] Instructions, Sore Throat - Adult Activity Restrictions/Additional Instructions: - Change out your toothbrush - Warm salt gargles - Return to ED with worsening fever greater than 100.4 ?F, inability to swallow, worsening shortness of breath. Thank you for choosing [facility] for your healthcare needs today. You have been screened and evaluated and felt safe for discharge. Health conditions do change or evolve sometimes and as such it is important that you follow up with your Primary Doctor to be re checked, 3-5 days is a general good time frame for follow up. You are always welcome to return to the ED for re assessment if your symptoms are worsening or you have new concerns Print Language: Kyrgyz Coding Level of Care Code ED Lead Web Application Developer for Sharad Barnes
[2025-06-21 17:35] LABS: Rapid Strep A Test Negative (Negative)
== END 2025-06-21 17:10 | disposition home or self-care (01) ==
PROVIDERS: Emergency Provider Physician Assistant; PCP Family Medicine
DX: J06.9 Acute upper respiratory infection, unspecified (principal); J02.9 Acute pharyngitis, unspecified; Z72.0 Tobacco use
CPT/HCPCS: 87081; 87880; 96372; 99284; J1100